=== PATIENT | female | born 2005 | race Hispanic/Latino ===

== ENCOUNTER 2025-01-29 13:44 | Emergency (ER) | payer BC ==
[~2025-01-29] VITALS: Ht 170.2 cm; Wt 90.0 kg
[2025-01-29 15:10] LABS: IMMATURE GRANULOCYTE ABSOLUTE 0.05 K/uL (0-1); NUCLEATED RED BLOOD CELLS 0.0 % (0.0-0.19); PLATELET COUNT (AUTO) 257 K/uL (130-400); RED BLOOD CELL COUNT(AUTO) 4.48 MIL/uL (4.00-5.50); RED CELL DISTRIBUTION WIDTH 12.3 % (11.0-15.5); WHITE BLOOD COUNT (AUTO) 12.0 K/uL (4.8-10.8)
[2025-01-29 15:22] LABS: CREATININE 0.8 mg/dL (0.5-1.0); GLOMERULAR FILTR. RATE CALC 108.0 mL/min (>90); GLUCOSE,RANDOM 103.0 mg/dL (70-105); SODIUM SERUM 139.0 mmol/L (136-145); UREA NITROGEN, BLOOD 13.0 mg/dL (7-18)
[2025-01-29 15:33] LABS: HCG,QUANTITATIVE 0.0 mIU/mL (0-5)
--- NOTE | 2025-01-29 16:39 | HMCIMG ---
EXAM: CR Abdomen, 1 View. CLINICAL HISTORY: constipation COMPARISON: None provided. FINDINGS: BOWEL: The bowel gas pattern is within normal limits. Abundant colonic fecal matter may reflect constipation. PERITONEUM/SOFT TISSUES: No free air evident. No pathologic appearing calcification. BONES: No aggressive appearing osseous lesion seen. IMPRESSION: 1. No acute abdominal findings. 2. Abundant colonic fecal matter may reflect constipation. /[place]
[2025-01-29] MEDS: LACTULOSE 20 GM/30 ML UDCUP PO STA (16:45)
--- NOTE | 2025-01-29 16:47 | ERN ---
ED Note History of Present Illness Stated Complaint: ABD PAIN Chief Complaint: Abdominal Pain Time Seen by MD: 13:47 Time Seen by Midlevel: 13:50 Dictation: 20-year-old female coming in with complaints of constipation for seven days. Patient states he has started a laxative yesterday but did not have any bowel movements and today he tried taking magnesium citrate but threw it up. Denies having any fever, nausea, vomiting we will. Allergies: Coded Allergies: Penicillins (Unverified Allergy, Unknown, HIVES, 01/29/25) Past Medical History Past Medical History: Constipation Surgical History: Other Surgical History Other: COLONOSCOPY LMP: Jan 18, 2025 Review of System Dictation Constitutional: Negative for fever,chills, and weight loss Eyes: Negative for injury, pain,redness, and discharge ENT: Negative for injury,pain or swelling Cardiovascular: Negative for chest pain, palpitations, and edema Respiratory: Negative for shortness of breath, cough, and wheezing, Abdomen/GI: Negative for abdominal pain, nausea, vomiting, diarrhea, complaining of constipation Back: Negative for injury and pain : Negative for injury, bleeding and discharge MS/Extremity: Negative for injury and deformity Skin: Negative for rash, and discoloration Neuro: Negative for headache, weakness, numbness, tingling, and seizure Psych: Negative for suicide ideation, homicidal ideation, and hallucinations Review of Systems: was completed Initial Vital Sign VS Vital Signs Date Time Temp Pulse Resp B/P (MAP) Pulse Ox O2 Delivery O2 Flow Rate FiO2 01/29/25 13:47 97.7 102 18 125/84 99 Room Air 0 01/29/25 15:22 21 Physical Exam Dictation General: awake, alert, NAD Head/Face: Normocephalic, atraumatic Eyes: PERRL, EOMI, vision at baseline ENT: oral cavity clear, TMs clear, no signs of infection Neck: Trachea midline, supple, no nuchal rigidity Cardiovascular: RRR, normal S1/S2, No MRGs, no JVD Respiratory: CTAB, no respiratory distress, No rales or wheezes Abdomen: Soft, non-tender, non-distended, normal bowel sounds, no guarding or rebound. Skin: Warm, dry, normal turgor, no rash MS/Extremity: Pulses equal, no cyanosis, neurovascular intact, FROM Neuro: COAx4, GCS 15, strength 5/5, CN 2-12 intact, normal cerebellar exam, normal gait, Psych: Normal behavior, mood, and affect normal Results (Laboratory/Radiology) Laboratory/Radiology Laboratory Tests Test 01/29/25 15:00 White Blood Count 12.0 K/uL (4.8-10.8) H Red Blood Count 4.48 MIL/uL (4.00-5.50) Hemoglobin 12.9 g/dL (12.0-16.0) Hematocrit 38.7 % (36-48) Mean Corpuscular Volume 86.4 fL (80-100) Mean Corpuscular Hemoglobin 28.8 pg (27.0-33.0) Mean Corpuscular Hemoglobin Concent 33.3 g/dL (32.0-36.0) Red Cell Distribution Width 12.3 % (11.0-15.5) Platelet Count 257 K/uL (130-400) Mean Platelet Volume 9.7 fL (7.5-10.5) Immature Granulocyte % (Auto) 0.4 % (0-1) Neutrophils (%) (Auto) 79.7 % (40.0-77.0) H Lymphocytes (%) (Auto) 10.9 % (21.0-51.0) L Monocytes (%) (Auto) 8.4 % (3.0-13.0) Eosinophils (%) (Auto) 0.3 % (0.0-8.0) Basophils (%) (Auto) 0.3 % (0.0-5.0) Neutrophils # (Auto) 9.5 K/uL (1.8-7.7) H Lymphocytes # (Auto) 1.3 K/uL (1.0-4.8) Monocytes # (Auto) 1.0 K/uL (0.1-1.0) Eosinophils # (Auto) 0.04 K/uL (0.00-0.70) Basophils # (Auto) 0.03 K/uL (0.00-0.20) Absolute Immature Granulocyte (auto 0.05 K/uL (0-1) Nucleated Red Blood Cells 0.0 % (0.0-0.19) Sodium Level 139 mmol/L (136-145) Potassium Level 4.1 mmol/L (3.5-5.1) Chloride Level 105 mmol/L (101-111) Carbon Dioxide Level 25 mmol/L (21-32) Blood Urea Nitrogen 13 mg/dL (7-18) Creatinine 0.8 mg/dL (0.5-1.0) Glomerular Filtration Rate Calc 108 mL/min (>90) Random Glucose 103 mg/dL (70-105) Total Calcium 8.8 mg/dL (8.5-10.1) Human Chorionic Gonadotropin, Quant 0 mIU/mL (0-5) Labs Reviewed?: Yes X-RAY Comment: [facility] [address] [place] [address] IMAGING REPORT Signed PATIENT: MEHREEN CAPELLAN MR#: [id number] : 2005 SEX: F AGE: 20 LOCATION: [facility] ORDER 26 STATUS: REG ER REPORT#: [id number] SERVICE 25 REASON: constipation ORDERING PHYSICIAN: ARASELI WESTON CNP PROCEDURE: ABD 1VW - ABD 1VW EXAM: CR Abdomen, 1 View. CLINICAL HISTORY: constipation COMPARISON: None provided. FINDINGS: BOWEL: The bowel gas pattern is within normal limits. Abundant colonic fecal matter may reflect constipation. PERITONEUM/SOFT TISSUES: No free air evident. No pathologic appearing calcification. BONES: No aggressive appearing osseous lesion seen. IMPRESSION: 1. No acute abdominal findings. 2. Abundant colonic fecal matter may reflect constipation. /[place] DICTATED BY: JARRELL GARCIA Jr., MD DATE: 01/29/251737 ELECTRONICALLY SIGNED BY: JARRELL GARCIA Jr., MD DATE: 01/29/251737 ED Course ED Course Orders Procedure Category Date Status Time Cbc With Differential LAB 01/29/25 Complete 14: Basic Metabolic Panel LAB 01/29/25 Complete 14:26 Hcg,Quantitative LAB 01/29/25 Complete 14:26 Abd 1vw RAD 01/29/25 Resulted 14:26 *Nursing CPOE 01/29/25 Transmitted Communication: 14:26 Lactulose 20 Gm/30 Ml PHA 01/29/25 Complete Udcup (Constulose 16:25 Current Medications Medications (Trade) Dose Ordered Sig/Ehsan Route PRN Reason Start Time Stop Time Status Last Admin Dose Admin Lactulose (Constulose 20gm/ 30ml Udcup) 20 gm ONCE STAT PO 01/29/25 16:25 01/29/25 16:27 DC 01/29/25 16:45 Vital Signs Date Time Temp Pulse Resp B/P (MAP) Pulse Ox O2 Delivery O2 Flow Rate FiO2 01/29/25 15:22 107/56 Room Air* 0 21 01/29/25 13:47 97.7 102 18 125/84 99 Room Air 0 Medical Decision Making MDM MDM: 20-year-old female coming in with complaints of constipation for seven days. Patient states he has started a laxative yesterday but did not have any bowel movements and today he tried taking magnesium citrate but threw it up. Denies having any fever, nausea, vomiting we will. CBC shows white count of 12, no anemia, no thrombocytopenia. Chemistry unremarkable. Patient was given a Fleet enema which allowed her to have a large bowel movement. Patient states after bowel movement pain has resolved. Pt tolerated p.o. challenge. Discussed with the patient does not like we will give her lactulose to take at home for the constipation. Educated her on red flag symptoms of when to return back to the emergency room. Patient verbalized understanding, answered all questions. Differential diagnosis: Fecal impaction, constipation Rationale: Tests considered and ordered secondary to shared decision making include: Previous outside records reviewed: Old ER visits. Risk of complication and/or morbidity or mortality of patient management: None Medications-Per medication reconciliation Need for hospitalization: Patient does not meet criteria for hospitalization. Need for emergency major/minor surgery: No There are no social concerns with this patient. Prescription drug management Prescriptions will include symptomatic care Patient's prior external medical records from other ER visits were reviewed by me as indicated. Prior testing and results from previous visits were reviewed. Prior tests were taken into account with medical decision making and resource ut ilization, independent historian/historians were used to obtain complete medical history. I independently interpreted the test that were performed, results were reviewed by me and considered findings on radiology if ordered. Medical management and examination interpretation discussions were had by me with other qualified healthcare professionals as indicated for the patient's car e. DX & DISP Disposition: Discharge Departure Impression: Primary Impression: Constipation Condition: Stable Scripts Lactulose (Kristalose) 20 Gram Packet 1 PACKET PO DAILY PRN for constipation for 5 Days, #5 PACKET 0 Refills Prov: ARASELI WESTON CNP 01/29/25 Additional Instructions: Take medication as prescribed for constipation. Increase fiber in your food. Increase fluid intake. If you develop any fever, right lower quadrant pain, nausea or vomiting return to the hospital. Referrals: MAYA YODER (PCP) Time of Disposition: 17:03 I have reviewed the case, and I agree with, Diagnosis and Plan ARASELI WESTON CNP Jan 29, 2025 16:47
[2025-01-29] MEDS ORDERED: LACT20PA6 PO (17:04)
[2025-01-29 17:35] VITALS: BP 111/58; PULSE 98; RESP 18; TEMP 98.3; O2SAT 100
--- NOTE | 2025-01-29 17:37 | NUR ---
PT GIVEN ENEMA , PT WAS ABLE TO HAVE A MODERATE BOWEL MOVEMENT IN ER DEPT.
== END 2025-01-29 17:42 | disposition home or self-care (01) ==
LOC: EDH 13:44
DX: K59.00 Constipation, unspecified (principal); Z88.0 Allergy status to penicillin
CPT/HCPCS: 36415; 74018; 80048; 84702; 85025; 99283